=== PATIENT | male | born 1995 | race Caucasian/White ===

== ENCOUNTER 2017-09-14 12:51 | Emergency (ER) | payer MEDICAID, OTHER ==
[~2017-09-14] VITALS: Ht 188 cm; Wt 76.6 kg
[2017-09-14 12:58] VITALS: BP 110/74
[2017-09-14] MEDS ORDERED: CEFTRIAXONE 250 MG IM ONE (13:30)
[2017-09-14] MEDS ORDERED: AZITHROMYCIN 500 MG TABLET PO ONE (13:30)
[2017-09-14] MEDS ORDERED: CEFTRIAXONE 250 MG ONE (14:42)
[2017-09-14] MEDS ORDERED: AZITHROMYCIN 500 MG TABLET ONE (14:42)
[2017-09-14 15:14] LABS: PATH.CAST-FLAG NOT PRESENT; SPERM-FLAG NOT PRESENT; SRC-FLAG NOT PRESENT; XTAL-FLAG NOT PRESENT; YLC-FLAG NOT PRESENT
== END 2017-09-14 14:49 | disposition home or self-care (01) ==
LOC: ED 14:42
DX: N34.2 Other urethritis (principal)
CPT/HCPCS: 81001; 87086; 87491; 87591; 96372; 99284; J0696

== ENCOUNTER 2019-11-08 16:45 | Emergency (ER) | payer MEDICAID ==
[~2019-11-08] VITALS: Ht 188 cm; Wt 76.0 kg
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
[2019-11-08 18:18] VITALS: BP 109/65
[2019-11-08 18:18] LABS: ALBUMIN 4.8 g/dL (3.4-5.0); ANION GAP 5 mmol/L (5-15); CALCIUM 9.7 mg/dL (8.5-10.1); CHLORIDE 110 mmol/L (98-107)
--- NOTE | 2019-11-08 18:19 | NUR ---
PT RESTING IN [facility]. AWAITING X RAY RESULTS. NO NEEDS AT THIS TIME
[2019-11-08 18:31] LABS: BASOPHILS # (AUTO) 0.05 x10^3/uL (0-0.1); BASOPHILS % (AUTO) 1 % (0-1); EOSINOPHILS # (AUTO) 0.19 x10^3/uL (0-0.4); EOSINOPHILS % (AUTO) 2 % (1-7); LYMPHOCYTES # (AUTO) 1.89 x10^3/uL (1-3.4); LYMPHOCYTES % (AUTO) 18 % (22-44); MD NO; MEAN CORPUSCULAR HEMOGLOBIN 29.3 pg (27.5-34.5); MEAN CORPUSCULAR HGB CONC 33.8 g/dL (33.2-36.2); MEAN CORPUSCULAR VOLUME 86.7 fL (81-97); MEAN PLATELET VOLUME 8.8 fL (7.4-10.4); MONOCYTES # (AUTO) 0.61 x10^3/uL (0.2-0.8); MONOCYTES % (AUTO) 6 % (2-9); NEUTROPHILS # (AUTO) 7.56 x10^3/uL (1.8-6.8); NEUTROPHILS % (AUTO) 73 % (42-75); PLATELET COUNT 213 x10^3/uL (130-400); RED BLOOD COUNT 5.35 x10^6/uL (4.38-5.82)
== END 2019-11-08 19:48 | disposition home or self-care (01) ==
LOC: ED 19:30
DX: F15.10 Other stimulant abuse, uncomplicated (principal); J45.909 Unspecified asthma, uncomplicated; F17.210 Nicotine dependence, cigarettes, uncomplicated; Z88.0 Allergy status to penicillin
CPT/HCPCS: 36415; 74018; 80048; 82040; 85025; 99284

== ENCOUNTER 2021-06-08 08:18 | Emergency (ER) | payer MEDICAID ==
[~2021-06-08] VITALS: Ht 190.5 cm; Wt 108.0 kg
--- NOTE | 2021-06-08 09:00 | NUR ---
ACCOUNT MANAGER TRAINEE: PT TO ROOM FROM ARACELIS JAMES
--- NOTE | 2021-06-08 09:34 | NUR ---
PT. IS A & O X 4 WITH A GCS OF 15. PT. HAS C/O LEFT NIPPLE DRAINAGE X 3 DAYS. PT. STATES HIS NIPPLE RING IS INFECTED. THE SITE HAS REDNESS, HEAT AND SWELLING PRESENT. PT. HAS NO OTHER COMPLAINTS AT THIS TIME.
--- NOTE | 2021-06-08 10:10 | NUR ---
Patient/Caregiver given discharge instructions and they have confirmed that they understand the instructions. Patient ambulatory with steady gait. NAD, all questions answered appropriately, denies additional needs at this time. No personal belongings left in room after discharge.
[2021-06-08 10:11] VITALS: BP 106/67
== END 2021-06-08 10:13 | disposition home or self-care (01) ==
LOC: ED 10:05
DX: L03.313 Cellulitis of chest wall (principal)
CPT/HCPCS: 99283

== ENCOUNTER 2021-06-10 12:17 | Emergency (ER) | payer MEDICAID ==
[~2021-06-10] VITALS: Ht 188 cm; Wt 108.9 kg
--- NOTE | 2021-06-10 12:32 | NUR ---
Melyssa worley in [facility] - 06/10/21 at 1237 by MAXIMILIAN Patient given discharge instructions and RX,they have confirmed that they understand the instructions. Patient ambulatory with steady gait.
[2021-06-10 13:33] LABS: BASOPHILS % (AUTO) 0 % (0-1); EOSINOPHILS % (AUTO) 1 % (1-7); LYMPHOCYTES % (AUTO) 29 % (22-44); MEAN CORPUSCULAR HEMOGLOBIN 29.8 pg (27.5-34.5); MEAN CORPUSCULAR HGB CONC 34.5 g/dL (33.2-36.2); MEAN PLATELET VOLUME 8.7 fL (7.4-10.4); MONOCYTES % (AUTO) 5 % (2-9); NEUTROPHILS % (AUTO) 65 % (42-75); PLATELET COUNT 173 x10^3/uL (130-400); RED BLOOD COUNT 5.16 x10^6/uL (4.38-5.82); RED CELL DISTRIBUTION WIDTH 13.9 % (9.4-14.8)
[2021-06-10 13:39] LABS: ALBUMIN 3.8 g/dL (3.4-5.0); ANION GAP 8 mmol/L (5-15); CALCIUM 8.8 mg/dL (8.5-10.1); CHLORIDE 105 mmol/L (98-107)
[2021-06-10 13:43] LABS: ALANINE AMINOTRANSFERASE 18 U/L (12-78); ALKALINE PHOSPHATASE 80 U/L (45-117); BILIRUBIN,TOTAL 0.5 mg/dL (0.2-1.0); CREATININE 1.07 mg/dL (0.7-1.3); TOTAL PROTEIN 7.9 g/dL (6.4-8.2)
[2021-06-10 16:38] VITALS: BP 121/75
--- NOTE | 2021-06-10 18:43 | NUR ---
NO ANSWER X 1
--- NOTE | 2021-06-10 19:00 | NUR ---
NO ANS X 2
--- NOTE | 2021-06-10 19:36 | NUR ---
NO ANS X 3
== END 2021-06-10 19:37 | disposition left against medical advice (07) ==
LOC: ED 19:30
DX: U07.1 COVID-19 (principal); N61.0 Mastitis without abscess
CPT/HCPCS: 36415; 76642; 80053; 85025; 99284